=== PATIENT | female | born 1990 | race Hispanic/Latino ===

== ENCOUNTER 2024-06-09 02:47 | Day surgery (SDC) | payer MEDICAID ==
[2024-06-09 03:08] VITALS: BMI 46.0
[2024-06-09] MEDS ORDERED: hydrALAZINE 20 MG/ML VIAL SLOW IVP PRN (03:33)
== END 2024-06-09 09:45 | disposition home or self-care (01) ==
LOC: CSHLD/OP 02:47
PROVIDERS: ATTEND Family Medicine
DX: O36.8130 Decreased fetal movements, third trimester, not applicable or unspecified (principal); O99.213 Obesity complicating pregnancy, third trimester; E66.01 Morbid (severe) obesity due to excess calories; O24.419 Gestational diabetes mellitus in pregnancy, unspecified control; O98.713 Human immunodeficiency virus [HIV] disease complicating pregnancy, third trimester; O98.313 Other infections with a predominantly sexual mode of transmission complicating pregnancy, third trimester; A56.8 Sexually transmitted chlamydial infection of other sites; O09.43 Supervision of pregnancy with grand multiparity, third trimester; O99.343 Other mental disorders complicating pregnancy, third trimester; F41.9 Anxiety disorder, unspecified; F32.A Depression, unspecified; Z3A.28 28 weeks gestation of pregnancy; Z90.49 Acquired absence of other specified parts of digestive tract; Z79.84 Long term (current) use of oral hypoglycemic drugs; Z79.899 Other long term (current) drug therapy; Z88.1 Allergy status to other antibiotic agents
CPT/HCPCS: 36416; 76815; 76819; 81001; 87086; 99284